=== PATIENT | female | born 1955 | race Caucasian/White ===

== ENCOUNTER 2016-07-25 02:41 | Emergency (ER) | payer OTHER | END 2016-07-25 05:20 | disposition short-term general hospital (02) | LOC: ER 02:41 | DX: R09.2 Respiratory arrest (principal); J44.9 Chronic obstructive pulmonary disease, unspecified; A41.9 Sepsis, unspecified organism; J18.9 Pneumonia, unspecified organism | CPT/HCPCS: 36415; 51702; 92950; 96365; 96366; 96368; 96375 ==